=== PATIENT | male | born 1985 | race Caucasian/White ===

== ENCOUNTER → 2021-11-17 13:21 | Outpatient (CLI) | payer OTHER, SELFPAY ==
--- NOTE | 2021-11-17 | DI.MRI.S_ITS ---
PROCEDURE: MR BRAIN (PITUITARY) WWO CON INDICATIONS: Disorder of pituitary gland, unspecified TECHNIQUE: Noncontrast sagittal and axial FLAIR, axial gradient echo, axial diffusion and ADC through the brain. Thin-slice sagittal and coronal T1 spin echo, coronal T2 fast spin echo through the pituitary. After the administration contrast, optional dynamic coronal T1 spin echo, thin-slice coronal and sagittal T1 spin echo images through the pituitary fossa; axial and coronal and sagittal T1 spin echo with fat saturation through the brain. COMPARISON: None. FINDINGS: Image quality: Excellent. Pituitary Gland: Pituitary gland is normal in size. Infundibulum is midline. There is a posterior central focus of decreased delayed enhancement measuring approximately 3 mm. CSF Spaces: Ventricles are normal in size and shape. Basal cisterns are patent. No extra-axial fluid collections. Brain: No intracranial bleeds or mass effects. No abnormal intracranial enhancement. [place]-white matter interface is intact. Diffusion weighted images demonstrate no acute ischemic insults. Brainstem is normal. Normal intravascular flow voids are present. Skull and face: Calvarial marrow is normal in signal. Orbits appear normal. Sinuses: Sinuses and mastoids are clear. IMPRESSION: Pituitary gland is normal in size. Decreased focus of enhancement is noted in the posterior central region measuring approximately 3 mm. Micro adenoma cannot be excluded and recommend correlation to patient's symptoms as well as laboratory values. Dictated by: Melisa Cleary M.D. on 11/17/2021 at 16:19 Approved by: Melisa Cleary M.D. on 11/17/2021 at 16:28
== END ==
DX: E23.7 Disorder of pituitary gland, unspecified (principal)
CPT/HCPCS: 70553